=== PATIENT | male | born 1980 ===

== ENCOUNTER 2023-09-29 10:09 | Day surgery (SDC) | payer BC ==
--- NOTE | 2023-09-28 09:38 | NUR ---
SUICIDE RISK ASSESSMENT COMPLETED OVER PHONE WITH PATIENT. PATIENT REPORTS THOUGHTS OF KILLING SELF FOR WHICH HE WAS ADMITTED INTO A BEHAVIORAL HEALTH UNIT IN [facility] (OVER 3 WEEKS AGO). HE STATES HE IS SATISFIED WITH THE MENTAL HEALTH CARE HE HAS RECIEVED AND DENIES NEEDING ANY ADDITIONAL RESOURCES. PATIENT ALSO REPORTS WAKING UP FROM ANESTHESIA AGGRESSIVE. HE STATES HE WILL NOTIFY ANESTHESIA. 0952: THIS NURSE SPOKE WITH JOSE ANTONIO Mina CRNA WHO WAS ON THE PHONE WITH THE PATIENT AND HAD BEEN INFORMED OF THE PATIENTS AGGRESSIVE BEHAVIOR WAKING FROM ANESTHESIA.
[~2023-09-29] VITALS: Ht 188 cm; Wt 113.0 kg
[~2023-09-29 10:09] MED LIST: Famotidine 20 MG TAB PO SCH; LR 1,000 ML IV SCH; Meclizine 25 MG TAB PO SCH; Scopolamine 1 MG Delivered 3-Day PATCH TD SCH
[2023-09-29] MEDS ORDERED: CARDIZEM CD 18180 MG PO (10:48)
[2023-09-29] MEDS ORDERED: PROTONIX 40MG T40 MG PO (10:48)
[2023-09-29] MEDS ORDERED: COGENTIN 1MG1 MG/TAB PO (10:48)
[2023-09-29] MEDS ORDERED: CELEBREX 200MG200 MG PO (10:49)
[2023-09-29] MEDS ORDERED: STRATTERA 40MG40 MG PO (10:49)
[2023-09-29] MEDS ORDERED: LIPITOR 40MG TA40 MG PO (10:50)
[2023-09-29] MEDS ORDERED: PRINIVIL20 MG PO (10:50)
[2023-09-29] MEDS ORDERED: ZYPREXA20 MG PO (10:51)
[2023-09-29] MEDS ORDERED: REMERON 15M15 MG/TA1 PO (10:51)
[2023-09-29] MEDS ORDERED: LEXAPRO20 MG PO (10:52)
[2023-09-29] MEDS ORDERED: XYZAL5 MG PO (10:53)
--- NOTE | 2023-09-29 11:30 | NUR ---
The patient ambulated back to [facility] independently using a steady gait and appeared to tolerate the activity well. Vital signs obtained. Consent signed. 18G IV started in right hand with LR infusing without difficulty. Assessment completed. Home medications reconcilled. Warm blanket provided. Denies any further needs at this time.
[2023-09-29 11:31] VITALS: BP 120/82; PULSE 79; TEMP 97.7
[2023-09-29] MEDS ORDERED: Ondansetron 4 MG/2 ML VIAL ONE (12:27)
[2023-09-29] MEDS ORDERED: NS 100 ML IV ONE (12:27)
[2023-09-29] MEDS ORDERED: Rocuronium 50 MG/5 ML Multi-Dose VIAL ONE (12:27)
[2023-09-29] MEDS ORDERED: Succinylcholine PF 200 MG/10 ML SYRINGE IV ONE (12:27)
[2023-09-29] MEDS ORDERED: Lidocaine PF 2% (20 MG/ML) 5 ML VIAL ONE (12:27)
[2023-09-29] MEDS ORDERED: fentaNYL 50 MCG/ML 2 ML VIAL ONE (12:27)
[2023-09-29] MEDS ORDERED: dexAMETHasone 10 MG/ML VIAL ONE (12:27)
[2023-09-29] MEDS ORDERED: Midazolam 2 MG/2 ML VIAL ONE (12:32)
[2023-09-29] MEDS ORDERED: Lidocaine 1% w EPI (1:100,000) 20 ML Multi-Dose VIAL SQ ONE (13:19)
[2023-09-29] MEDS ORDERED: fentaNYL 50 MCG/ML 1 ML SYRINGE/VIAL [PACU/SDC ONLY] IV PRN (13:30)
[2023-09-29] MEDS ORDERED: HYDROmorphone 1 MG/1 ML SYRINGE [PACU/SDC ONLY] IV PRN (13:30)
[2023-09-29] MEDS ORDERED: hydrALAZINE 20 MG/ML 1 ML VIAL IV PRN (13:30)
[2023-09-29] MEDS ORDERED: Ondansetron 4 MG/2 ML VIAL IV PRN ×2 (13:30→14:30)
[2023-09-29] MEDS ORDERED: droPERidol 2.5 MG/ML 2 ML VIAL IV PRN (13:30)
[2023-09-29] MEDS ORDERED: Meperidine 50 MG/ML 1 ML VIAL IV PRN (13:30)
[2023-09-29] MEDS ORDERED: NORCO 325 MG-51 TAB PO (14:29)
[2023-09-29] MEDS ORDERED: Naloxone 0.4 MG/ML VIAL IV PRN (14:30)
[2023-09-29] MEDS ORDERED: oxyCODONE 5 MG TAB PO PRN ×2 (14:30)
[2023-09-29 14:50] VITALS: BP 124/81; PULSE 61; TEMP 97
[2023-09-29 15:05] VITALS: BP 129/83; PULSE 79
[2023-09-29 15:08] VITALS: TEMP 97.4
[2023-09-29] MEDS ORDERED: Acetaminophen 500 MG TAB PO SCH (15:17)
[2023-09-29 15:20] VITALS: BP 121/72; PULSE 63
--- NOTE | 2023-09-29 15:35 | NUR ---
1450-PT TO [facility] 3 PER CART FROM PACU. REPORT RECEIVED. VS OBTAINED. CALL LIGHT WITHIN REACH. PT AMBULATED TO RESTROOM WITH STANDBY ASSIST. PT VOIDED WITHOUT DIFFICULTY. PT TOLERATING SODA AND PUDDING. IV TO SL. 1510-PT DENIES ANY NEEDS AT THIS TIME. 1520-PT DRESSED SELF WITHOUT ASSISTANCE. 1525-IV DC'D AT THIS TIME. 1530-DISCHARGE EDUCATION COMPLETED WITH PT AND HIS . VERBALIZED UNDERSTANDING OF HOME AND FOLLOW UP CARE. ALL QUESTIONS ANSWERED. DISCHARGE PAPERWORK GIVEN TO PT'S . 1535-PT OFF UNIT PER WHEELCHAIR. PT DISCHARGED TO HOME WITH HIS FAMILY PER PERSONAL VEHICLE.
[2023-09-29] MEDS ORDERED: Ibuprofen 600 MG TAB PO SCH (18:17)
== END 2023-09-29 15:35 | disposition home or self-care (01) ==
LOC: SDCO 10:09
DX: G47.33 Obstructive sleep apnea (adult) (pediatric) (principal); Z68.31 Body mass index [BMI] 31.0-31.9, adult
CPT/HCPCS: C1767; C1778; C1883; J0690; J1100; J2250; J2405; J2704; J3010; J7120